=== PATIENT | male | born 1950 | race Caucasian/White ===

== ENCOUNTER 2016-08-06 20:28 | Emergency (ER) | payer BC ==
[2016-08-06 20:39] VITALS: BP 136/82
[2016-08-06] MEDS ORDERED: DIPHTH,PERTUSS(ACELL),TET VAC 0.5 ML VIAL IM ONE ×2 (20:46→21:02)
--- OUTSIDE RECORDS SUMMARY | 2016-08-06 20:51 | XMS REPORT | Continuity of Care Document ---
:1950 Author Organization [facility] ([facility]) Address [address] [place] [address] Phone [phone] Care Team Providers Name Role Phone Ezio Olivas Primary Care Provider [phone] Source Comments This disclosure is being made pursuant to the Care Everywhere program, applicable federal and state laws, and may not contain all informaitonavailable regarding this patient.[facility] ([facility]) Active Allergies and Adverse Reactions Allergen Noted Date Severity Reactions Comments No Known Allergies 03/09/2011 NO REACTION Current Medications Prescription Sig. Disp. Refills Start Date End Date Status WARFARIN SODIUM Take 8 mg by mouth. Active (COUMADIN PO) May vary. Take as directed. Alternates 10mg and 8mg valsartan (DIOVAN) 160 Take 160 mg by mouth Active mg tablet daily. triamterene-hydrochloro Take 0.5 Caps by Active thiazide 37.5-25 mg per mouth Every morning. capsule aspirin 81 mg tablet Take 81 mg by mouth Active daily. tadalafil (CIALIS) 20 Take 1 Tab by mouth 6 Tab 11 08/30/2012 Active mg tablet as needed. Indications: ERECTILE DYSFUNCTION JANTOVEN 2 mg tablet As directed. 11/17/2015 Active Alternates 10mg and 8mg metFORMIN 500 mg tablet Take 750 mg by mouth 10/16/2015 Active 2 times daily. glimepiride 2 mg tablet Take 2 mg by mouth 12/02/2015 Active every morning. SUPPLY ONE TOUCH ULTRA 11/05/2015 Active test strips Active Problems Problem Noted Date CPAP use counseling 02/20/2015 Obesity (BMI 30-39.9) 02/20/2015 Obstructive sleep apnea (adult) (pediatric) 10/21/2012 Periodic limb movement disorder 10/21/2012 HTN (hypertension) 02/03/2011 Hx of aortic valve replacement, mechanical 02/03/2011 Overview: Formatting of this note may be different from the original. CARDIOVASCULAR PROCEDURES CV SURGERY: CV Surgery -1991 ECHO/MUGA: Echo (The left ventricle appears normal. There is mild concentric left ventricular hypertrophy. Left ventricular systolic function is normal. The left ventricular wall motion is normal. There is a mechanical aortic valve. Physiologic aortic regurgitation. The peak aortic valve gradient is 22 mmHg. The mean aortic valve gradient is 11 mmHg. The gradient is normal for this prosthetic aortic valve. ) - 04/11/2008 Echo (1. Moderate concentric left ventricular hypertrophy 2. Left ventricular systolic function is normal 3. There is a bioprosthetic aortic valve 4. Peak gradient is 36 and mean gradient is 21 5. Mildly dilated ascending aorta measuring 4.1 cm) - 11/20/2012 Migraines 02/03/2011 Scrotal mass 02/03/2011 Immunizations Name Dates Previously Given Next Due Influenza, unspecified 02/20/2014 Social History Tobacco Use Types Packs/Day Years Used Date Former Smoker 1 20 Quit: 04/04/1983 Smokeless Tobacco: Never Used Tobacco Cessation:Counseling Given: Yes Comments: Alcohol Use Drinks/Week oz/Week Comments Yes rare Last Filed Vital Signs Vital Sign Reading Time Taken Blood Pressure 140/78 12/09/2015 11:40 AM CDT Pulse 62 12/09/2015 11:40 AM CDT Temperature 36.7 C (98.1 F) 08/30/2012 1:24 PM CDT Respiratory Rate 16 08/30/2012 1:24 PM CDT Height 1.727 m (5' 8") 12/09/2015 11:40 AM CDT Weight 97.07 kg (214 lb) 12/09/2015 11:40 AM CDT Body Mass Index 32.55 12/09/2015 11:40 AM CDT Oxygen Saturation 98% 08/30/2012 1:24 PM CDT Plan of Care Date Type Specialty Providers Description 12/07/2016 Appointment Heart and Vascular Katherin Morrison MD Chief Comp: Patient [address] [place] [address] Visit [phone] (Fax) Health Maintenance Due Date Last Done Comments HCV Screening 1950 Hepatitis B Vaccine (1 of 3 - Primary Series) 1950 Tdap Vaccine 1962 Lipid Disorder Screening 1969 Td Vaccine 1969 Pneumococcal Vaccine (1 of 2 - PCV13) 1970 Colonoscopy 05/31/2001 Prostate Cancer Screening 2001 Zoster Vaccine 2011 Influenza Vaccine: Seasonal (#1) 11/03/2015 02/20/2014 Results from Last 3 Months Not on file
--- NOTE | 2016-08-06 21:14 | ERNOTE ---
Medical Problem HPI - General Chief Complaint: Laceration Time Seen by Provider: 08/06/16 20:44 Source: patient Exam Limitations: no limitations - Immun/Allergies/Home Medications Immunizations: IMMUNIZATION HX Immunizations Up to Date No History of Influenza Vaccine Yes Hx Pneumococcal Vaccination Yes Allergies/Adverse Reactions: Allergies No Known Drug Allergies Allergy (Verified 08/06/16 20:39) Home Medications: HOME MEDICATIONS Triamterene/Hydrochlorothiazid [Dyazide 37.5-25 Capsule] 0.5 each PO DAILY 02/15 [Last Taken Unknown] Valsartan [Diovan] 160 mg PO DAILY 02/16/12 [Last Taken Unknown] Warfarin Sodium [Coumadin] 8 mg PO MOWEFR 02/16/12 [Last Taken Unknown] Aspirin [Isatu Chewable] 81 mg PO DAILY 01/20/14 [Last Taken Unknown] Glimepiride [Amaryl] 2 mg PO BID 10/01/14 [Last Taken Unknown] metFORMIN HCL [Glucophage] 1,250 mg PO BIDWM 10/01/14 [Last Taken Unknown] Warfarin Sodium [Coumadin] 10 mg PO SUTUTHSA 11/20/15 [Last Taken Unknown] - History of Present History Narrative: pt was washing dishes at home when he cut his right index finger, prior to presentation to ED. Here for laceration to right index finger. He is left handed. Review of Systems - Review of Systems Constitutional: Present: no symptoms reported EYE: Present: no symptoms reported ENT: Present: no symptoms reported Respiratory: Present: no symptoms reported Cardiology: Present: no symptoms reported Gastrointestinal/Abdominal: Present: no symptoms reported Genitourinary: Present: no symptoms reported Musculoskeletal: Present: See HPI - Patient's Past Medical History Patient History - Medical: Diabetes Type 2 Patient History - Cardiac/Respiratory: Hypertension Patient History - Cancer: No Hx of Cancer Patient History - Surgical Procedures: Hernia Repair Patient History - Other: None - Social History Living Situations: home Psych History: No pertinent hx Smoking Status: Former smoker Have you smoked in the past 12 months: No Alcohol Use: rarely Drug Use: none - Immunizations Immunizations Up to Date: No Hx Pneumococcal Vaccination: Yes History of Influenza Vaccine: Yes Physical Exam - Physical Exam General Appearance: Present: wd/wn, alert, no apparent distress Neck: Present: normal inspection, nontender Respiratory: Present: no respiratory distress, normal breath sounds, no accessory muscle use, chest nontender, lungs clear Cardiovascular/Chest: Present: regular rate, rhythm, no murmur, normal peripheral pulses Gastrointestinal/Abdominal: Present: normal bowel sounds, nontender Extremity Exam: Present: normal except - - laceration to right index digit, other - There is a 1 cm linear semicircular superficial laceration to volar aspect of the right index PIP area. Bleeding has stopped as compression has been placed. Neurological Exam: Present: alert, oriented, normal mood/affect ED Progress - Vital Signs Patient's Vital Signs:: I have reviewed the patient's vital signs. Vital Signs: Vital Signs 08/06/16 20:34 Temperature 35.8 C L Pulse Rate 66 Respiratory 18 Rate Blood Pressure 136/82 O2 Sat by Pulse 96 Oximetry - Progress/Reassessment Chief Complaint: Laceration Departure - Departure Clinical Impression: Laceration of finger Qualifiers: Encounter type: initial encounter Qualified Code(s): S61.219A - Laceration without foreign body of unspecified finger without damage to nail, initial encounter Disposition: Home self-care Condition: Good Instructions: Laceration Care, Adult, Part-po-Lvyj Additional Instructions: follow up with PCP in 48 hours for wound check and then when appropriate as instructed by him/her return to them or here for suture removal. Referrals: Ezio Olivas MD [Primary Care Provider] -
== END 2016-08-06 21:19 | disposition home or self-care (01) ==
LOC: ER 20:28
PROC: 2W3JX1Z Immobilization of Right Finger using Splint (ICD-10-PCS; principal; 2016-08-06)
PROC: 0HQFXZZ Repair Right Hand Skin, External Approach (ICD-10-PCS; 2016-08-06)
DX: S61.210A Laceration without foreign body of right index finger without damage to nail, initial encounter (principal); W45.8XXA Other foreign body or object entering through skin, initial encounter; Y93.89 Activity, other specified; Y92.000 Kitchen of unspecified non-institutional (private) residence as the place of occurrence of the external cause; Z23 Encounter for immunization; I10 Essential (primary) hypertension; E11.9 Type 2 diabetes mellitus without complications